=== PATIENT | male | born 1955 | race Native Hawaiian/Other Pacific Islander ===

== ENCOUNTER 2022-07-20 10:44 | Outpatient (CLI) | payer OTHER, MEDICARE ==
[2022-07-20 12:26] LABS: PLATELET COUNT 171 K/uL (142-355)
== END 2022-07-20 19:20 | disposition home or self-care (01) ==
LOC: LABW 10:44
PROVIDERS: ATTEND Registered Nurse
DX: M79.89 Other specified soft tissue disorders (principal)
CPT/HCPCS: 36415; 84550; 85027